=== PATIENT | female | born 1955 | race Caucasian/White ===

== ENCOUNTER 2017-06-11 14:24 | Outpatient (CLI) | payer BC, OTHER | END 2017-06-11 14:25 | disposition home or self-care (01) | LOC: SC 14:24 | PROVIDERS: ATTEND Specialist | DX: G47.33 Obstructive sleep apnea (adult) (pediatric) (principal); G47.00 Insomnia, unspecified | CPT/HCPCS: 99204; 99212 ==

== ENCOUNTER 2020-12-30 17:50 | Emergency (ER) | payer BC, OTHER ==
--- NOTE | 2020-12-30 18:24 | ED Physician Documentation ---
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 In June she had some hemorrhagic thyroid cysts that were aspirated. Over the last few days has developed anterior neck redness and swelling, chills, fatigue and malaise. Also mild difficulty swallowing. No measured fevers. Declines pain medications. Review of Systems Ten Systems: 10 systems reviewed and negative Constitutional: reports: Chills, Myalgias, Fatigue Nose: denies: Rhinorrhea / runny nose, Congestion Throat: reports: Sore throat Cardiac: denies: Chest pain / pressure, Palpitations Respiratory: denies: Dyspnea, Cough GI: denies: Abdominal Pain, Nausea, Vomiting PD PAST MEDICAL HISTORY - Past Medical History Past Medical History: Yes HEENT: Glaucoma - Past Surgical History Past Surgical History: Yes HEENT: Other - Present Medications Home Medications: Ambulatory Orders Medication Instructions Recorded Confirmed Amox/Clav 875/125 [Augmentin] 1 each PO Q12H #20 tablet 12/30/20 - Allergies Allergies/Adverse Reactions: Allergies Allergy/AdvReac Type Severity Reaction Status Date / Time metronidazole [From Flagyl] Allergy Rash Verified 12/30/20 17:59 - Social History Does the pt smoke?: No Smoking Status: Never smoker Does the pt drink ETOH?: Yes Does the pt have substance abuse?: No - Immunizations Immunizations are current?: Yes - POLST Patient has POLST: No PD ED PE NORMAL - Vitals Vital signs reviewed: Yes - General General: Alert and oriented X 3, No acute distress - HEENT HEENT: PERRL, EOMI, Other (Visualized portions of the oropharynx are normal.) - Neck Neck: Supple, no meningeal sign, No bony TTP, Other (There is a palpable firm mass in the anterior lower neck. It is just above the clavicles. It is mildly tender. Mostly on the right side but does cross the midline.) - Neuro Neuro: Alert and oriented X 3, Normal speech Results - Vitals Vitals: Vital Signs - 24 hr 12/30/20 12/30/20 12/30/20 17:53 17:58 20:04 Temperature 36.7 C 36.7 C 37.5 C Heart Rate 100 100 96 Respiratory 18 18 16 Rate Blood Pressure 175/89 H 175/89 H 145/82 H O2 Saturation 96 96 95 Oxygen O2 Source Room air - Labs Labs: Laboratory Tests 12/30/20 12/30/20 12/30/20 18:32 18:32 18:32 WBC 13.0 H RBC 4.71 Hgb 14.5 Hct 44.5 MCV 94.5 MCH 30.8 MCHC 32.6 RDW 13.4 Plt Count 273 MPV 11.4 H Neut # (Auto) 9.5 H Lymph # (Auto) 2.1 [place] # (Auto) 1.2 H Eos # (Auto) 0.1 Baso # (Auto) 0.1 Absolute Nucleated RBC 0.00 Nucleated RBC % 0.0 Sodium 137 Potassium 3.6 Chloride 98 L Carbon Dioxide 27 Anion Gap 12.0 BUN 11 Creatinine 0.7 Estimated GFR (MDRD) 85 L Glucose 108 H Calcium 9.3 TSH 2.65 Free T4 1.00 PD MEDICAL DECISION MAKING - ED course ED course: 65-year-old woman presents with dysphagia, slight phonation difficulties, some systemic symptoms but no fever and palpable neck mass which on CT is a 3.4 x 3.4 x 4.4 cm right thyroid mass with tracheal displacement and suggestion of superimposed infection. Case was discussed by phone with Dr. Johnny Mcgill ENT at [place]. He felt that since it looks like a solid mass [facility] and the patient was comfortable with this and an expedited outpatient plan was formulated. Departure - Departure Disposition: 01 Home, Self Care Clinical Impression: Abscess, thyroid Condition: Good Record reviewed to determine appropriate education?: Yes Prescriptions: Amox/Clav 875/125 [Augmentin] 1 each PO Q12H #20 tablet Comments: [facility] we spoke with Dr. Naun Snell ENT in [place]. He plans to talk with Dr. Zheng tomorrow to try to get you in an expeditious way. If you have any troubles you can call him at at [phone].
[2020-12-30] MEDS ORDERED: IOVERSOL 320 100 ML VIAL IVP ONE ×2 (18:28→19:45)
[2020-12-30 18:37] LABS: BASOPHILS # (AUTO) 0.1 10^3/uL (0.0-0.1); BASOPHILS % (AUTO) 0.4 %; EOSINOPHILS # (AUTO) 0.1 10^3/uL (0.0-0.7); EOSINOPHILS % (AUTO) 0.9 %; HCT - HEMATOCRIT 44.5 % (37.0-47.0); HGB - HEMOGLOBIN 14.5 g/dL (12.0-16.0); LYMPHOCYTES # (AUTO) 2.1 10^3/uL (1.5-3.5); LYMPHOCYTES % (AUTO) 15.9 %; MEAN CORPUSCULAR HEMOGLOBIN 30.8 pg (27.0-31.0); MEAN CORPUSCULAR HGB CONC 32.6 g/dL (32.0-36.0); MEAN CORPUSCULAR VOLUME 94.5 fL (81.0-99.0); MEAN PLATELET VOLUME 11.4 fL (7.9-10.8); MONOCYTES # (AUTO) 1.2 10^3/uL (0.0-1.0); MONOCYTES % (AUTO) 8.9 %; NEUTROPHILS # (AUTO) 9.5 10^3/uL (1.5-6.6); NEUTROPHILS % (AUTO) 73.6 %; PLT - PLATELET COUNT 273 10^3/uL (130-450); RED BLOOD COUNT 4.71 10^6/uL (4.20-5.40); RED CELL DISTRIBUTION WIDTH 13.4 % (12.0-15.0)
[2020-12-30 19:06] LABS: CALCIUM 9.3 mg/dL (8.5-10.3); CREATININE 0.7 mg/dL (0.4-1.0); POTASSIUM 3.6 mmol/L (3.5-5.0)
[2020-12-30 19:08] LABS: THYROID STIMULATING HORMONE 2.65 uIU/mL (0.34-5.60)
[2020-12-30 20:05] VITALS: BP 145/82
--- NOTE | 2020-12-30 20:06 | CT Report ---
PROCEDURE: SOFT TISSUE NECK W INDICATIONS: neck mass CONTRAST: IV CONTRAST: Optiray 320 ml: 100 PO CONTRAST: *NO PO CONTRAST TECHNIQUE: After the administration of intravenous contrast, 3.0 mm axial sections acquired from the sella to th e aortic arch. Additional oblique axial 3.0 mm sections acquired through the pharynx. 3 mm thick co seun reformats were generated. For radiation dose reduction, the following was used: automated exp osure control, adjustment of mA and/or kV according to patient size. COMPARISON: None FINDINGS: Image quality: Excellent. Lymph nodes: No enlarged lymph nodes seen throughout the neck. Vessels: Visualized vasculature appears patent. Neck spaces: There is a 3.4 x 3.4 x 4.4 cm right thyroid mass which displaces the trachea to the left . Surrounding fatty infiltration suggest a possible superimposed infection. The mass is well-circumsc ribed and measures a density of 50 Hounsfield units consistent with a solid mass however an abscess w ith hyperdense fluid is a possibility. There is no enhancement of the mass. There is no involvement o f the carotid artery or jugular vein. No adenopathy in the right neck is seen. The oropharynx, nasopharynx, and pharynx demonstrate no mucosal lesions. The vocal cords, false voca l cords, pyriform sinuses, epiglottis, vallecula, and tongue base all appear normal. Extramucosal sp aces appear unremarkable. Glands: The parotid and submandibular glands appear normal. Miscellaneous: Visualized brain and orbits appear normal. Lung apices appear clear. Superficial so ft tissues appear normal. Bones: C5-6 and C6-7 demonstrate disc space narrowing. Visualized sinuses and mastoids appear unremar kable. IMPRESSION: 3.4 x 3.4 x 4.4 cm right thyroid mass which displaces the trachea to the left and has olson rrounding fatty infiltration suggesting a possible superimposed infection. The mass has a density of 50 Hounsfield units consistent with a solid mass. There is no enhancement of the mass. Ultrasound wou ld be helpful to better characterize if clinically indicated. The mass displaces the trachea to the l eft. Reviewed by: Shiv Zimmerman on 12/30/2020 8:05 PM PDT Approved by: Shiv Zimmerman on 12/30/2020 8:05 PM PDT Station ID: [id number]
[2020-12-30] MEDS ORDERED: AMOX/CLAV 875 MG/125 MG TABLET PO STA (20:22)
[2020-12-30 21:16] LABS: B. PARAPERTUSSIS- RESP PCR PAN NOT DETECTED; B. PERTUSSIS- RESP PCR PANEL NOT DETECTED; C. PNEUMONIAE- RESP PCR PANEL NOT DETECTED; CORONAVIRUS 229E-RESP PCR NOT DETECTED; CORONAVIRUS HKU1-RESP PCR NOT DETECTED; CORONAVIRUS NL63-RESP PCR NOT DETECTED; CORONAVIRUS OC43-RESP PCR NOT DETECTED; HUMAN METAPNEUMOVIRUS NOT DETECTED; INFLUENZA A- RESP PCR PANEL NOT DETECTED; INFLUENZA B - RESP PCR PANEL NOT DETECTED; M. PNEUMONIAE- RESP PCR PANEL NOT DETECTED; PARAINFLUENZA VIRUS 1 NOT DETECTED; PARAINFLUENZA VIRUS 2 NOT DETECTED; PARAINFLUENZA VIRUS 3 NOT DETECTED; PARAINFLUENZA VIRUS 4 NOT DETECTED; RHINOVIRUS/ENTEROVIRUS NOT DETECTED; RSV- RESP PCR PANEL NOT DETECTED; SARS-CoV-2 -RESP PCR PANEL NOT DETECTED
== END 2020-12-30 20:29 | disposition home or self-care (01) ==
LOC: ED 17:50
DX: E06.0 Acute thyroiditis (principal); E07.89 Other specified disorders of thyroid; Z20.822 Contact with and (suspected) exposure to COVID-19
CPT/HCPCS: 0202U; 36415; 70491; 80048; 84439; 84443; 85025; 99283; 99284; A9270; Q9967

== ENCOUNTER 2022-06-14 16:31 | Emergency (ER) | payer MEDICARE, OTHER ==
[2022-06-14] MEDS ORDERED: iohexoL-300 100 ML VIAL ONE (17:04)
--- NOTE | 2022-06-14 17:09 | ED Physician Documentation ---
PD HPI FOCAL NEURO - Stated complaint Stated Complaint: LT SIDE WEAKNESS/HEAD PX - Chief complaint Chief Complaint: Neuro - History obtained from History obtained from: Patient - History of Present Illness Timing - onset: Today Timing - duration: Hours (1) Timing - details: Abrupt onset, Now resolved Severity of deficit: Mild Weakness: Leg, Left Numbness: Leg, Left Associated symptoms: Headache. No: Nausea / vomiting, Seizure, Syncope, Fall, Head injury, Chest pain, Neck pain, Back pain, Fever Contributing factors: negative: Anticoagulated, Vascular dz, Atrial fibrillation Baseline status: positive: A&OX3, ambulatory, indep Similar symptoms before: Has not had sx before Recently seen: Not recently seen - Additional information Additional information: 67-year-old female presents to the emergency department stating that about an hour and a half ago she noticed that her left leg was "not working correctly". She states that it is difficult to describe the sensation she was feeling. She states she did feel odd over the entire left side of her body but is unable to describe this any further. She had a headache as well. She does not normally get headaches. No neck pain. No fevers. No cough. No chills. She states symptoms are currently improving. She was able to walk the entire time. No h istory of TIA or stroke. She states that the headache was left-sided, dull, aching. Review of Systems Ten Systems: 10 systems reviewed and negative Constitutional: denies: Fever, Chills Ears: denies: Ear pain Nose: denies: Rhinorrhea / runny nose, Congestion Respiratory: denies: Dyspnea, Cough GI: denies: Nausea, Vomiting, Diarrhea Skin: denies: Rash Musculoskeletal: denies: Neck pain, Back pain Neurologic: denies: Focal weakness, Numbness, Seizure, Confused, LOC PD PAST MEDICAL HISTORY - Past Medical History Past Medical History: Yes HEENT: Glaucoma - Past Surgical History Past Surgical History: Yes HEENT: Other - Present Medications Home Medications: Ambulatory Orders Medication Instructions Recorded Confirmed Amox/Clav 875/125 [Augmentin] 1 each PO Q12H #20 tablet 12/30/20 - Allergies Allergies/Adverse Reactions: Allergies Allergy/AdvReac Type Severity Reaction Status Date / Time metronidazole [From Flagyl] Allergy Rash Verified 06/14/22 16:43 - Social History Does the pt smoke?: No Smoking Status: Never smoker Does the pt drink ETOH?: Yes Does the pt have substance abuse?: No - Immunizations Immunizations are current?: Yes - POLST Patient has POLST: No PD ED PE NORMAL - Vitals Vital signs reviewed: Yes - General General: Alert and oriented X 3, No acute distress, Well developed/nourished - HEENT HEENT: PERRL, Moist mucous membranes, Pharynx benign - Neck Neck: Supple, no meningeal sign, No bony TTP, No JVD, No bruit - Cardiac Cardiac: RRR, No murmur, Strong equal pulses - Respiratory Respiratory: No respiratory distress, Clear bilaterally - Abdomen Abdomen: Soft, Non tender, Non distended - Back Back: No spinal TTP - Derm Derm: Warm and dry, No rash - Extremities Extremities: No edema - Neuro Neuro: Alert and oriented X 3, 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, No motor deficit, No sensory deficit, Normal speech Eye Opening: Spontaneous Motor: Obeys Commands Verbal: Oriented GCS Score: 15 - Psych Psych: Normal mood, Normal affect NIHSS - Time Time: 16:52 - Level of Consciousness Level of consciousness: (0) Alert, Keenly responsive LOC Questions: (0) Answers both Q's correct LOC Commands: (0) Performs both correctly - Gaze Best Gaze: (0) Normal - Visual Visual: (0) No loss - Facial Palsy Facial Palsy: (0) Normal, symmetrical movement - Motor Arms (both separate) Motor Arm (right): (0) No drift Motor Arm (left): (0) No drift - Motor Legs (both separate) Motor Leg (right): (0) No drift Motor Leg (left): (0) No drift - Limb Ataxia Limb Ataxia: (0) Absent - Sensory Sensory: (0) Normal - Best Language Best Language: (0) No aphasia - Dysarthria Dysarthria: (0) Normal - Extinction and Inattention (formally neg Extinction and inattention: (0) No abnormality - Total Score/Results Total Score/Result: 0 Results - Vitals Vitals: Vital Signs - 24 hr 06/14/22 06/14/22 06/14/22 16:36 18:15 19:51 Temperature 36.6 C Heart Rate 93 68 Respiratory 16 18 Rate Blood Pressure 198/94 H 137/61 H O2 Saturation 98 99 Oxygen O2 Source Room air - EKG (time done) 1705 Rate: Rate (enter#) (82) Rhythm: NSR [place]: Normal Intervals: Normal CT QRS: Normal Ischemia: Normal ST segments - Labs Labs: Laboratory Tests 06/14/22 06/14/22 06/14/22 18:01 18:01 18:01 WBC 7.1 RBC 4.80 Hgb 14.2 Hct 44.5 MCV 92.7 MCH 29.6 MCHC 31.9 L RDW 13.1 Plt Count 285 MPV 11.0 H Neut # (Auto) 4.8 Lymph # (Auto) 1.7 [place] # (Auto) 0.5 Eos # (Auto) 0.1 Baso # (Auto) 0.0 Absolute Nucleated RBC 0.00 Nucleated RBC % 0.0 PT 11.2 INR 1.0 Sodium 140 Potassium 3.6 Chloride 101 Carbon Dioxide 27 Anion Gap 12.0 BUN 16 Creatinine 0.7 Estimated GFR (MDRD) 84 L Glucose 107 H Calcium 9.5 Total Bilirubin 1.0 AST 23 ALT 20 Alkaline Phosphatase 42 Total Protein 7.5 Albumin 4.3 Globulin 3.2 Albumin/Globulin Ratio 1.3 Lipase 37 - Rads (name of study) brain MRI Radiology: Final report received, EMP read contemporaneously, See rad report CT angio head Radiology: Final report received, EMP read contemporaneously, See rad report Ct angio neck Radiology: Final report received, EMP read contemporaneously, See rad report PD MEDICAL DECISION MAKING - ED course Complexity details: reviewed results, re-evaluated patient, considered differential, d/w patient, d/w family ED course: 67-year-old female with left leg paresthesia and left-sided paresthesias that coincided with a headache. All symptoms resolved in the emergency department. Normal brain MRI. Normal CT angiogram head and neck. Unclear etiology of her symptoms. Possible complex migraine? She is ambulating without difficulty. NIH stroke scale of 0. We will have her follow-up closely with her doctor for further care. Patient counseled regarding signs and symptoms for which I believe and urgent re-evaluation would be necessary. Patient with good understanding of and agreement to plan and is comfortable going home at this time This document was made in part using voice recognition software. While efforts are made to proofread this document, sound alike and grammatical errors may occur. Departure - Departure Disposition: 01 Home, Self Care Clinical Impression: Paresthesia Migraine Qualifiers: Migraine type: unspecified Status migrainosus presence: without status migrainosus Intractability: not intractable Qualified Code(s): G43.909 - Migraine, unspecified, not intractable, without status migrainosus Condition: Good Instructions: ED Headache Migraine, ED Paraesthesias Follow-Up: NOE REBOLLAR MD [Primary Care Provider] - Within 1 week Comments: The cause of your symptoms is unclear tonight. This could be due to a complex migraine. Your symptoms have resolved at this point. Your brain MRI, CT angiogram of the head and neck are all unremarkable. Please follow-up with your doctor for further care. Return if you worsen. Discharge Date/Time: 06/14/22 19:51
--- NOTE | 2022-06-14 17:58 | MRI Report ---
PROCEDURE: MRI brain without contrast INDICATIONS: L leg weakness, ataxia TECHNIQUE: Noncontrast axial T1 spin echo, axial T2 fast spin echo, sagittal and axial FLAIR, coronal T2 fast sp in echo, axial gradient echo, axial diffusion and ADC through the brain. COMPARISON: None. FINDINGS: Image quality: Excellent. CSF Spaces: Basal cisterns are patent. No extra-axial fluid collections. Ventricles are normal in size and shape. Brain: No intracranial masses or hemorrhage. [place]/white matter interface is normal. Brainstem appe ars normal. Diffusion-weighted images demonstrate no acute ischemic insult. No chronic ischemic ins ults. Normal intravascular flow voids are present. Skull and face: Calvarium has normal marrow signal. Orbits appear normal. Sinuses: Sinuses and mastoids are clear. IMPRESSION: Normal MRI of the brain Reviewed by: Lyle Byrd MD on 06/14/2022 4:57 PM [place] Approved by: Lyle Byrd MD on 06/14/2022 4:57 PM [facility] Station ID: [id number]
[2022-06-14 18:11] LABS: BASOPHILS % (AUTO) 0.6 %; EOSINOPHILS # (AUTO) 0.1 10^3/uL (0.0-0.7); EOSINOPHILS % (AUTO) 1.1 %; HCT - HEMATOCRIT 44.5 % (37.0-47.0); HGB - HEMOGLOBIN 14.2 g/dL (12.0-16.0); LYMPHOCYTES # (AUTO) 1.7 10^3/uL (1.5-3.5); LYMPHOCYTES % (AUTO) 23.8 %; MEAN CORPUSCULAR HEMOGLOBIN 29.6 pg (27.0-31.0); MEAN CORPUSCULAR HGB CONC 31.9 g/dL (32.0-36.0); MEAN CORPUSCULAR VOLUME 92.7 fL (81.0-99.0); MONOCYTES # (AUTO) 0.5 10^3/uL (0.0-1.0); MONOCYTES % (AUTO) 6.8 %; NEUTROPHILS # (AUTO) 4.8 10^3/uL (1.5-6.6); NEUTROPHILS % (AUTO) 67.4 %; PLT - PLATELET COUNT 285 10^3/uL (130-450); RED CELL DISTRIBUTION WIDTH 13.1 % (12.0-15.0); WHITE BLOOD COUNT 7.1 x10^3/uL (4.8-10.8)
[2022-06-14 18:22] LABS: ALBUMIN 4.3 g/dL (3.2-5.5); ALBUMIN/GLOBULIN RATIO 1.3 (1.0-2.2); CALCIUM 9.5 mg/dL (8.5-10.3); CREATININE 0.7 mg/dL (0.4-1.0); POTASSIUM 3.6 mmol/L (3.5-5.0); TOTAL PROTEIN 7.5 g/dL (6.7-8.2)
[2022-06-14 18:31] LABS: PT - PROTHROMBIN TIME 11.2 secs (9.9-12.6)
[2022-06-14] MEDS ORDERED: iohexoL-300 100 ML VIAL IVP ONE (19:09)
--- NOTE | 2022-06-14 19:31 | CT Report ---
PROCEDURE: ANGIO HEAD W/WO INDICATIONS: L leg weakness, PERKINS CONTRAST: 80 TECHNIQUE: Precontrast 4.5 mm thick angled axial sections acquired from the foramen magnum to the vertex. Afte r the administration of intravenous contrast, 1 mm thick sections acquired through the [place] of [place] is. Postcontrast 4.5 mm thick sections then re-acquired from the foramen magnum to the vertex. 3-di mensional jbgywmh-xolgriotk-orzsyyxpxp (MIP) and/or volume rendering reformats were acquired of the c entral intracranial vasculature. For radiation dose reduction, the following was used: automated ex posure control, adjustment of mA and/or kV according to patient size. COMPARISON: MRA neck, MRI brain 06/14/2022 FINDINGS: Image quality: Excellent. Anterior circulation: Intracranial internal carotid arteries are normal in size and flow. The flow within the paired anterior cerebral arteries is normal and symmetric. The flow within the middle cer ebral arteries is normal and symmetric. The anterior communicating artery is seen. No aneurysms are seen. Posterior circulation: There is a slight left vertebral artery dominance. Visualized portions of the vertebral arteries demonstrate normal caliber, and join to form a normal appearing basilar artery. Flow within the posterior cerebral arteries is normal and symmetric. No aneurysms are seen. CSF spaces: Ventricles are normal in size and shape. Basal cisterns are patent. No extra-axial flu id collections. Brain: No midline shift. No intracranial bleeds or masses. Argueta-white matter interface appears int act. Skull and face: Calvarium and facial bones appear intact, without suspicious lesions. Sinuses: Visualized sinuses and mastoids are clear. IMPRESSION: 1. No acute intracranial process. 2. No areas of hemodynamically significant stenosis, vascular occlusion or aneurysmal dilation within the anterior or posterior circulation. Reviewed by: Dasha Smith MD on 06/14/2022 7:30 PM PST Approved by: Dasha Smith MD on 06/14/2022 7:30 PM PST Station ID: [id number]
--- NOTE | 2022-06-14 19:33 | CT Report ---
PROCEDURE: ANGIO NECK W INDICATIONS: L leg weakness, PERKINS TECHNIQUE: After the administration of intravenous contrast, 1.5 mm axial sections acquired from the aortic arch to the [place] of [place]. Coronal 3-D maximum intensity projection (MIP) and/or volume rendering ref ormats were then performed. For radiation dose reduction, the following was used: automated exposur e control, adjustment of mA and/or kV according to patient size. COMPARISON: CTA head, MRI brain 06/14/2022 FINDINGS: Image quality: Excellent. Carotid system: The great vessels demonstrate a conventional anatomy as they arise from the aortic a rch. The origins of the common carotid arteries appear patent. The common carotid arteries demonstr ate normal calibers and courses. The bifurcation regions appear normal bilaterally. The internal ca rotid arteries demonstrate normal caliber and course. Posterior circulation: The origins of the vertebral arteries appear patent. The more superior porti ons of the vertebral arteries demonstrate normal course and caliber. They join to form a normal appe aring basilar artery. Soft tissues: Visualized neck soft tissues demonstrate no suspicious abnormalities. The thyroid is normal in size and there are no incidental findings. Bones: No suspicious bony lesions. Visualized cervical spine appears normally aligned. IMPRESSION: There are no areas of hemodynamically significant stenosis, vascular occlusion or aneurysmal dilation within the neck vasculature. The estimate of stenosis included in the report of the imaging study was calculated using the NASCET method CLINICAL RECOMMENDATION STATEMENTS: In patients <35 years with an ITN detected on CT, MRI, or extrathyroidal ultrasound, the Committee re commends further evaluation with dedicated thyroid ultrasound if the nodule is "e1 cm and has no susp icious imaging features, and if the patient has normal life expectancy. In patients "e35 years with an ITN detected on CT, MRI, or extrathyroidal ultrasound, the Committee r ecommends further evaluation with dedicated thyroid ultrasound if the nodule is "e1.5 cm and has no s uspicious imaging features, and if the patient has normal life expectancy. (ACR, 2014) Reviewed by: Dasha Smith MD on 06/14/2022 7:31 PM PST Approved by: Dasha Smith MD on 06/14/2022 7:31 PM PST Station ID: [id number]
[2022-06-14 19:53] VITALS: BP 137/61
== END 2022-06-14 19:51 | disposition home or self-care (01) ==
LOC: ED 16:31
DX: R20.2 Paresthesia of skin (principal); G43.909 Migraine, unspecified, not intractable, without status migrainosus; I45.81 Long QT syndrome
CPT/HCPCS: 36415; 70496; 70498; 70551; 80053; 83690; 85025; 85610; 93005; 99284; Q9967